=== PATIENT | male | born 1975 | race Caucasian/White ===

== ENCOUNTER → 2021-11-12 | Outpatient (CLI) | payer BC ==
--- NOTE | 2021-11-13 08:49 | XR ---
EXAM TYPE: LUMBAR SPINE X RAY SERIES COMPARISON: NONE HISTORY: Pain TECHNIQUE: 3 views are submitted. FINDINGS: Alignment is anatomic. The pedicles are intact. The transverse processes are intact. There is dege nerative disc disease L3-4, L4-5 and L5-S1 with hypertrophic spurring and facet arthropathy. IMPRESSION: 1. Multilevel hypertrophic and degenerative changes. Recommend follow-up MRI.
== END | disposition home or self-care (01) ==
LOC: RADXRYALE 16:21
PROVIDERS: ATTEND Physician Assistant
DX: M47.816 Spondylosis without myelopathy or radiculopathy, lumbar region (principal)
CPT/HCPCS: 72100

== ENCOUNTER → 2021-11-19 | Outpatient (CLI) | payer BC ==
--- NOTE | 2021-11-20 08:08 | XR ---
EXAMINATION TYPE: XR orbit detect foreign body DATE OF EXAM: 11/19/2021 COMPARISON: NONE HISTORY: Pre-MRI TECHNIQUE: 3 views submitted FINDINGS: No metallic foreign body overlying the orbits. Changes of left maxilla sinusitis noted. Oss eous structures intact. IMPRESSION: No metallic foreign body overlying the orbits.
== END | disposition home or self-care (01) ==
LOC: RADXRYALE 15:57
PROVIDERS: ATTEND Physician Assistant
DX: Z01.818 Encounter for other preprocedural examination (principal)
CPT/HCPCS: 70030

== ENCOUNTER → 2021-12-01 | Outpatient (CLI) | payer BC ==
--- NOTE | 2021-12-01 14:45 | MR ---
EXAMINATION TYPE: MR lumbar spine wo/w con DATE OF EXAM: 12/01/2021 COMPARISON: None HISTORY: Low back pain for 26 years CONTRAST: Standard multiplanar, multisequence MRI departmental protocol images were obtained without contrast a nd with 11 mL intravenous Gadavist gadolinium contrast. The lumbar vertebrae have normal alignment. There is some minimal posterior disc bulging at L3-4 and L4-5. The neural foramina are widely patent. No spinal stenosis. There is developmentally adequate sp inal canal. No compression fracture. Posterior elements are intact. There is no lumbar paraspinal mass. Sacroiliac joints are intact. IMPRESSION: Mild posterior concentric disc bulging at L3-4 and L4-5. No spinal stenosis.
== END | disposition home or self-care (01) ==
LOC: RADMRIMAIN 09:47
PROVIDERS: ATTEND Physician Assistant
DX: M51.26 Other intervertebral disc displacement, lumbar region (principal)
CPT/HCPCS: 72158; A9585